=== PATIENT | female | born 1990 | race Caucasian/White ===

== ENCOUNTER 2018-09-08 06:40 | Inpatient (IN) | payer OTHER, SELFPAY ==
[~2018-09-08] VITALS: Ht 149.9 cm; Wt 85.3 kg
[2018-09-08] MEDS ORDERED: ONDANSETRON PF 4 MG/2 ML VIAL. IV PRN ×2 (07:00→07:15)
[2018-09-08] MEDS ORDERED: IV RINGERS,LACTATED 1000ML 1,000 ML IV PRN (07:00)
[2018-09-08] MEDS ORDERED: LIDOCAINE 1% PF 30 ML VIAL. INJ PRN (07:15)
[2018-09-08] MEDS ORDERED: 0.9 % SODIUM CHLORIDE 10 ML DISP.SYRIN. IV PRN ×2 (07:15→08:00)
[2018-09-08] MEDS ORDERED: ACETAMINOPHEN 325 MG TABLET. PO PRN ×2 (07:15→08:00)
[2018-09-08] MEDS ORDERED: NALBUPHINE 10 MG/ML AMPUL. IV PRN (07:15)
[2018-09-08] MEDS ORDERED: OXYTOCIN 30 UNIT/500 ML PREMIX 500 ML IV PRN ×2 (07:15→08:00)
[2018-09-08] MEDS ORDERED: TERBUTALINE 1 MG/ML VIAL. SQ PRN (07:15)
[2018-09-08] MEDS ORDERED: MAG HYDROX/ALUMINUM HYD/SIMETH 30 ML ORAL.SUSP PO PRN ×2 (07:15→08:00)
[2018-09-08] MEDS ORDERED: fentaNYL PF VIAL 100 MCG/2 ML VIAL IV PRN (07:15)
[2018-09-08 07:21] VITALS: BP 138/89
[2018-09-08 07:22] LABS: BILIRUBIN,URINE NEGATIVE (NEG); CLARITY,URINE CLEAR; COLOR,URINE YELLOW; NITRITE,URINE NEGATIVE (NEG); PROTEIN,URINE NEGATIVE (NEG-TRACE)
[2018-09-08] MEDS ORDERED: OXYTOCIN PREMIX 30 UNIT/500 ML BAG. IV ONE (07:25)
[2018-09-08 07:28] LABS: AMPHETAMINE/METHAMPHETAMINE NEG (NEG); BARBITURATES NEG (NEG); BENZODIAZEPINES NEG (NEG); CANNABINOIDS NEG (NEG); COCAINE NEG (NEG); METHADONE NEG (NEG); OPIATES NEG (NEG); PHENCYCLIDINE NEG (NEG)
[2018-09-08] MEDS ORDERED: PENICILLIN G K 5,000,000 UNIT in IV DEXTROSE 5% 100ML 100 ML IV ONE (07:30)
[2018-09-08 07:51] LABS: BACTERIA,URINE 0 /HPF (0-FEW); RBC,URINE 0 /HPF (0-2); SQUAMOUS EPITHELIAL CELL,UR FEW /LPF; WBC,URINE 0 /HPF (0-4)
--- NOTE | 2018-09-08 07:55 | PDOC1 ---
OB - History Hx of Present Care: Good Care Ultrasounds: Normal mid trimester US Obstetrical Complications: None Medical Complications: None Past Family/Social History * Past Medical, Surgical, Family and Obstetric Histories reviewed from chart. Blood Type: Unknown Rubella: Unknown RPR/VDRL: Unknown GBS Status: Unknown HBsAG: Unknown OB - Chief Complaint & HPI Date of Admission: Date of Admission: Sep 08, 2018 at 06:40 Chief Complaint/History : 4 Para: 3 EGA: 39 Reason for admission: active labor Admission Nurse Assessment Rev: Yes OB - Admission Exam Physical Exam Vitals: VS - Last 72 Hours, by Label Date Time Temp Pulse Resp B/P (MAP) Pulse Ox O2 Delivery O2 Flow Rate FiO2 09/08/18 07:21 98.0 72 20 138/89 (105) 97 Room Air 98.0 HEENT: Normal Heart: Regular Rate Lungs: Clear Abdomen: Gravid, Non tender, Soft Extremities: Edema Reflexes: Normal Cervical Dilatation: 6cm Effacement: 75% Station: -2 Membranes: Ruptured Amniotic Fluid: Clear Accelerations: Accelerations Present Decelerations: No decelerations Contractions on Admission: < 5 Minutes Apart Intensity: Firm Text A: 39 wks IUP SROM Active labor P: Admit labor management. EVER MADRID Jr, MD Sep 08, 2018 07:55
--- NOTE | 2018-09-08 07:57 | PDOC ---
VAGINAL DELIVERY DATE DATE: 09/08/18 TIME: 07:55 : 4 Para: 4 EGA: 39 VAGINAL DELIVERY: VTX VACCUM ASSISTED: No PLACENTA: Spontaneous 8/8 SEX: Male WEIGHT Weight [ 5 lbs. 14 oz] Nuchal Cord: Times 1 (body cord as well) Amniotic Fluid: Clear PAIN: Natural EPISIOTOMY: No EXTENSION: No EBL 300 ml COMPLICATIONS none CONDITION pt. stable Signs of Intrauterine Infectio: None Shoulder Dystocia: No EVER MADRID Jr, MD Sep 08, 2018 07:56
[2018-09-08] MEDS ORDERED: HYDROCORTISONE 1% TOPICAL OINTMENT 30GM TUBE. TP PRN (08:00)
[2018-09-08] MEDS ORDERED: BENZOCAINE 20% TOPICAL AEROSOL SPRAY 57GM CAN. TP PRN (08:00)
[2018-09-08] MEDS ORDERED: IBUPROFEN 400 MG TABLET. PO PRN (08:00)
[2018-09-08] MEDS ORDERED: MAGNESIUM HYDROXIDE 2,400 MG/30 ML ORAL.SUSP. PO PRN (08:00)
[2018-09-08] MEDS ORDERED: diphenhydrAMINE HCL 25 MG CAPSULE PO PRN (08:00)
[2018-09-08] MEDS ORDERED: SIMETHICONE 80 MG TAB.CHEW PO PRN (08:00)
[2018-09-08] MEDS ORDERED: PHENYLEPH/MINERAL OIL/PETROLAT RECTAL OINTMENT 57GM TUBE. RC PRN (08:00)
[2018-09-08] MEDS ORDERED: ZOLPIDEM 5 MG TABLET. PO PRN (08:00)
[2018-09-08] MEDS ORDERED: MMR per PROTOCOL. MC PRN (08:00)
[2018-09-08 08:06] LABS: BASO % 0 % (0-3); EOS % 0 % (0-3); HEMATOCRIT 29.2 % (36.0-47.0); HEMOGLOBIN 9.4 g/dL (12.0-15.5); LYMPH # 1.1 x10^3/uL (1.0-4.8); LYMPH % 12 % (24-48); MEAN CORPUSCULAR HEMOGLOBIN 26 pg (25-35); MEAN CORPUSCULAR HGB CONC 32 g/dL (31-37); MEAN CORPUSCULAR VOLUME 81 fL (79-100); MONO # 0.5 x10^3/uL (0.0-1.1); MONO % 5 % (0-9); NEUT # 7.6 x10^3uL (1.8-7.7); NEUT % 83 % (31-73); PLATELET COUNT 185 x10^3/uL (140-400); RED BLOOD COUNT 3.59 x10^6/uL (3.50-5.40); RED CELL DISTRIBUTION WIDTH 18.1 % (11.5-14.5); WHITE BLOOD COUNT 9.3 x10^3/uL (4.0-11.0)
[2018-09-08] MEDS: IBUPROFEN 400 MG TABLET. PO PRN ×2 (09:58→23:53)
[2018-09-08] MEDS: IV RINGERS,LACTATED 1000ML 1,000 ML IV SCH ×3 (09:59→23:09)
[2018-09-08 11:00] VITALS: BP 126/72
[2018-09-08] MEDS: PENICILLIN G K 2,500,000 UNIT in IV DEXTROSE 5% 50 ML IV SCH ×4 (11:30→23:30)
[2018-09-08 12:00] VITALS: BP 136/75
[2018-09-08] MEDS: DOCUSATE SODIUM 100 MG CAPSULE. PO PRN (15:09)
[2018-09-08] MEDS: oxyCODONE/APAP 5/325 1 TAB TABLET PO PRN ×3 (15:10→23:52)
[2018-09-08 15:45] VITALS: BP 128/72
[2018-09-08 23:30] VITALS: BP 128/82
[2018-09-09] MEDS: PENICILLIN G K 2,500,000 UNIT in IV DEXTROSE 5% 50 ML IV SCH ×5 (03:30→19:30)
[2018-09-09 05:30] VITALS: BP 112/73
[2018-09-09] MEDS: oxyCODONE/APAP 5/325 1 TAB TABLET PO PRN ×4 (05:54→19:01)
[2018-09-09] MEDS: IBUPROFEN 400 MG TABLET. PO PRN ×2 (05:54→17:06)
[2018-09-09 06:10] LABS: BASO % 0 % (0-3); EOS # 0.1 x10^3/uL (0.0-0.7); EOS % 1 % (0-3); HEMATOCRIT 23.7 % (36.0-47.0); HEMOGLOBIN 7.7 g/dL (12.0-15.5); LYMPH % 25 % (24-48); MEAN CORPUSCULAR HEMOGLOBIN 26 pg (25-35); MEAN CORPUSCULAR HGB CONC 32 g/dL (31-37); MEAN CORPUSCULAR VOLUME 82 fL (79-100); MONO # 0.5 x10^3/uL (0.0-1.1); MONO % 6 % (0-9); NEUT # 5.4 x10^3uL (1.8-7.7); NEUT % 68 % (31-73); PLATELET COUNT 173 x10^3/uL (140-400); RED BLOOD COUNT 2.91 x10^6/uL (3.50-5.40); RED CELL DISTRIBUTION WIDTH 18.4 % (11.5-14.5); WHITE BLOOD COUNT 7.9 x10^3/uL (4.0-11.0)
[2018-09-09] MEDS: IV RINGERS,LACTATED 1000ML 1,000 ML IV SCH ×2 (07:09→15:09)
[2018-09-09] MEDS: DOCUSATE SODIUM 100 MG CAPSULE. PO PRN (08:43)
[2018-09-09] MEDS: FERROUS SULFATE 325 MG TABLET. PO SCH ×2 (08:44→17:06)
[2018-09-09 11:26] VITALS: BP 116/71
--- NOTE | 2018-09-09 12:27 | PDOC ---
OB Progress Note Date of Service 09/09/18 Time of Evaluation 1225 Notes Pt. feeling well. No complaints. Lab Laboratory Tests Test 09/08/18 06:45 09/08/18 07:45 09/09/18 05:55 Urine Collection Type Unknown Urine Color Yellow Urine Clarity Clear Urine pH 7.0 Urine Specific [place] 1.015 Urine Protein Negative mg/dL (NEG-TRACE) Urine Glucose (UA) Negative mg/dL (NEG) Urine Ketones (Stick) Negative mg/dL (NEG) Urine Blood Negative (NEG) Urine Nitrite Negative (NEG) Urine Bilirubin Negative (NEG) Urine Urobilinogen Dipstick 1.0 mg/dL (0.2 mg/dL) Urine Leukocyte Esterase Negative (NEG) Urine RBC 0 /HPF (0-2) Urine WBC 0 /HPF (0-4) Urine Squamous Epithelial Cells Few /LPF Urine Bacteria 0 /HPF (0-FEW) Urine Opiates Screen Neg (NEG) Urine Methadone Screen Neg (NEG) Urine Barbiturates Neg (NEG) Urine Phencyclidine Screen Neg (NEG) Urine Amphetamine/Methamphetamine Neg (NEG) Urine Benzodiazepines Screen Neg (NEG) Urine Cocaine Screen Neg (NEG) Urine Cannabinoids Screen Neg (NEG) Urine Ethyl Alcohol Neg (NEG) White Blood Count 9.3 x10^3/uL (4.0-11.0) 7.9 x10^3/uL (4.0-11.0) Red Blood Count 3.59 x10^6/uL (3.50-5.40) 2.91 x10^6/uL (3.50-5.40) Hemoglobin 9.4 g/dL (12.0-15.5) 7.7 g/dL (12.0-15.5) Hematocrit 29.2 % (36.0-47.0) 23.7 % (36.0-47.0) Mean Corpuscular Volume 81 fL (79-100) 82 fL (79-100) Mean Corpuscular Hemoglobin 26 pg (25-35) 26 pg (25-35) Mean Corpuscular Hemoglobin Concent 32 g/dL (31-37) 32 g/dL (31-37) Red Cell Distribution Width 18.1 % (11.5-14.5) 18.4 % (11.5-14.5) Platelet Count 185 x10^3/uL (140-400) 173 x10^3/uL (140-400) Neutrophils (%) (Auto) 83 % (31-73) 68 % (31-73) Lymphocytes (%) (Auto) 12 % (24-48) 25 % (24-48) Monocytes (%) (Auto) 5 % (0-9) 6 % (0-9) Eosinophils (%) (Auto) 0 % (0-3) 1 % (0-3) Basophils (%) (Auto) 0 % (0-3) 0 % (0-3) Neutrophils # (Auto) 7.6 x10^3uL (1.8-7.7) 5.4 x10^3uL (1.8-7.7) Lymphocytes # (Auto) 1.1 x10^3/uL (1.0-4.8) 2.0 x10^3/uL (1.0-4.8) Monocytes # (Auto) 0.5 x10^3/uL (0.0-1.1) 0.5 x10^3/uL (0.0-1.1) Eosinophils # (Auto) 0.0 x10^3/uL (0.0-0.7) 0.1 x10^3/uL (0.0-0.7) Basophils # (Auto) 0.0 x10^3/uL (0.0-0.2) 0.0 x10^3/uL (0.0-0.2) Treponema pallidum Antibody Nonreactive (Nonreactive) Laboratory Tests Test 09/09/18 05:55 White Blood Count 7.9 x10^3/uL (4.0-11.0) Red Blood Count 2.91 x10^6/uL (3.50-5.40) Hemoglobin 7.7 g/dL (12.0-15.5) Hematocrit 23.7 % (36.0-47.0) Mean Corpuscular Volume 82 fL (79-100) Mean Corpuscular Hemoglobin 26 pg (25-35) Mean Corpuscular Hemoglobin Concent 32 g/dL (31-37) Red Cell Distribution Width 18.4 % (11.5-14.5) Platelet Count 173 x10^3/uL (140-400) Neutrophils (%) (Auto) 68 % (31-73) Lymphocytes (%) (Auto) 25 % (24-48) Monocytes (%) (Auto) 6 % (0-9) Eosinophils (%) (Auto) 1 % (0-3) Basophils (%) (Auto) 0 % (0-3) Neutrophils # (Auto) 5.4 x10^3uL (1.8-7.7) Lymphocytes # (Auto) 2.0 x10^3/uL (1.0-4.8) Monocytes # (Auto) 0.5 x10^3/uL (0.0-1.1) Eosinophils # (Auto) 0.1 x10^3/uL (0.0-0.7) Basophils # (Auto) 0.0 x10^3/uL (0.0-0.2) Medications Current Medications Ringer's Solution 1,000 ml @ 125 mls/hr Q8H PRN IV hydration; Start 09/08/18 at 07:00; Status Cancel Ondansetron HCl (Zofran) 4 mg PRN Q6HRS PRN IV NAUSEA; Start 09/08/18 at 07:00; Status Cancel Sodium Chloride (Normal Saline Flush) 3 ml QSHIFT PRN IV AFTER MEDS AND BLOOD DRAWS; Start 09/08/18 at 07:15 Ringer's Solution 1,000 ml @ 125 mls/hr Q8H IV Last administered on 09/08/18at 09:59; Start 09/08/18 at 07:09 Nalbuphine HCl (Nubain) 10 mg PRN Q1HR PRN IV Severe labor pain; Start 09/08/18 at 07:15 Fentanyl Citrate (Fentanyl 2ml Vial) 100 mcg PRN Q30MIN PRN IV Severe pain; Start 09/08/18 at 07:15 Acetaminophen (Tylenol) 650 mg PRN Q6HRS PRN PO MILD PAIN / TEMP; Start 09/08/18 at 07:15 Ondansetron HCl (Zofran) 4 mg PRN Q4HRS PRN IV NAUSEA/VOMITING; Start 09/08/18 at 07:15 Al Hydroxide/Mg Hydroxide (Mylanta Plus Xs) 30 ml PRN Q4HRS PRN PO HEARTBURN / GAS; Start 09/08/18 at 07:15 Terbutaline Sulfate (Brethine) 0.25 mg 1X PRN PRN SQ SEE COMMENTS; Start 09/08/18 at 07:15; Stop 09/09/18 at 07:14; Status DC Lidocaine HCl (Xylocaine 1% Pf 30ml Vial) 30 ml 1X PRN PRN INJ SEE COMMENTS; Start 09/08/18 at 07:15; Stop 09/10/18 at 07:14 Oxytocin/Sodium Chloride 500 ml @ 0 mls/hr CONT PRN PRN IV Post delivery bleeding; Start 09/08/18 at 07:15 Ibuprofen (Motrin) 800 mg PRN Q6HRS PRN PO PAIN MILD/INFLAMMATION Last administered on 09/09/18at 05:54; Start 09/08/18 at 07:15 Penicillin G Potassium [id number] unit/Dextrose 100 ml @ 100 mls/hr 1X ONCE IV ; Start 09/08/18 at 07:30; Stop 09/08/18 at 08:29; Status DC Penicillin G Potassium [id number] unit/Dextrose 50 ml @ 100 mls/hr Q4H IV ; Start 09/08/18 at 11:30 Sodium Chloride (Normal Saline Flush) 10 ml QSHIFT PRN IV AFTER MEDS AND BLOOD DRAWS; Start 09/08/18 at 08:00 Oxytocin/Sodium Chloride 500 ml @ 62.5 mls/hr CONT PRN IV SEE I/O RECORD; Start 09/08/18 at 08:00; Stop 09/08/18 at 15:59; Status DC Acetaminophen (Tylenol) 650 mg PRN Q6HRS PRN PO MILD PAIN / TEMP; Start 09/08/18 at 08:00; Status Cancel Ibuprofen (Motrin) 800 mg PRN Q8HRS PRN PO INFLAMMATION/PAIN PREVENTION; Start 09/08/18 at 08:00; Status Cancel Docusate Sodium (Colace) 100 mg PRN BID PRN PO CONSTIPATION Last administered on 09/09/18at 08:43; Start 09/08/18 at 08:00 Magnesium Hydroxide (Milk Of Magnesia) 2,400 mg PRN DAILY PRN PO CONSTIPATION; Start 09/08/18 at 08:00 Al Hydroxide/Mg Hydroxide (Mylanta Plus Xs) 30 ml PRN Q4HRS PRN PO HEARTBURN / GAS; Start 09/08/18 at 08:00; Status Cancel Simethicone (Gas-X) 80 mg PRN AFTMEALHC PRN PO GAS / BLOATING; Start 09/08/18 at 08:00 Diphenhydramine HCl (Benadryl) 25 mg PRN Q6HRS PRN PO ITCHING; Start 09/08/18 at 08:00 Benzocaine (Americaine) 1 spray PRN QID PRN TP TOPICAL PAIN Last administered on 09/08/18at 09:58; Start 09/08/18 at 08:00 Phenyleph/Shark Oil/Min Oil/Petrol (Preparation H) 1 leo PRN QID PRN RC RECTAL PAIN; Start 09/08/18 at 08:00 Hydrocortisone (Cortaid) 1 leo PRN QID PRN TP PERINEAL PAIN; Start 09/08/18 at 08:00 Ferrous Sulfate (Feosol) 325 mg BIDWMEALS PO Last administered on 09/09/18at 08:44; Start 09/09/18 at 08:00 Zolpidem Tartrate (Ambien) 5 mg PRN QHS PRN PO INSOMNIA, MAY REPEAT X1; Start 09/08/18 at 08:00 Info (Do NOT chart on this placeholder) 1 ea 1X PRN PRN MC SEE COMMENTS; Start 09/08/18 at 08:00 Info (Do NOT chart on this placeholder) 1 ea 1X PRN PRN MC SEE COMMENTS; Start 09/08/18 at 08:00 Oxycodone/ Acetaminophen (Percocet 5/325) 2 tab PRN Q4HRS PRN PO MODERATE PAIN, SEVERE PAIN Last administered on 09/09/18at 08:48; Start 09/08/18 at 08:00 Exam Abd: soft, non tender, fundus firm Assessment A: PPD#1 s/p Plan of Care: Continue current Tx, Mgmt EVER MADRID Jr, MD Sep 09, 2018 12:27
[2018-09-09 16:10] VITALS: BP 126/82
[2018-09-09 21:00] VITALS: BP 131/84
[2018-09-10 05:00] VITALS: BP 124/79
[2018-09-10] MEDS: IBUPROFEN 400 MG TABLET. PO PRN ×3 (05:20→17:08)
[2018-09-10] MEDS: oxyCODONE/APAP 5/325 1 TAB TABLET PO PRN (05:21)
[2018-09-10] MEDS: DOCUSATE SODIUM 100 MG CAPSULE. PO PRN (07:32)
[2018-09-10] MEDS: FERROUS SULFATE 325 MG TABLET. PO SCH ×2 (07:32→17:08)
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
[2018-09-10 10:43] VITALS: BP 128/84
--- NOTE | 2018-09-10 13:46 | NUR ---
SS following up. Jett from the PAT team met with infants mother for assessment and evaluation. Jett reported that pt is stable and cleared. He reported NO suicidal ideations at this time. He reported that mother had stopped taking her anti-depressants at the beginning of her and has been off for the duration of her and now that has been born wants to get back on her medications. Jett reported that Dr. Cowan is providing infants mother with a one month script for anti-depressant. Infants mother provided with a referral to [facility] for continued services and medication management in the community. Infant RN notified.
[2018-09-10 16:23] VITALS: BP 122/78
--- NOTE | 2018-09-10 17:38 | PDOC3 ---
OB DISCHARGE SUMMARY DATE OF ADMISSION: 09/08/18 DATE OF DISCHARGE: 09/10/18 REASON FOR ADMISSION: Onset of labor INTRAPARTUM PROCEDURES: Spontanous Vag Deliv DISCHARGE DIAGNOSIS: Term Delivered DISCHARGE INFORMATION: Activity (ad jacqueline), Diet (regular), Instructions (pelvic rest x 6 wks) HOSPITAL COURSE Term gestation delivered vaginally without complications. EVER MADRID Jr, MD Sep 10, 2018 17:38
[2018-09-10] MEDS ORDERED: IBUP-1027 PO (17:40)
[2018-09-10] MEDS ORDERED: SERT50TA PO (17:40)
--- NOTE | 2018-09-10 17:41 | DISCH ---
DISCHARGE INSTRUCTIONS Condition on Discharge Condition on Discharge: Stable Activity After Discharge Activity Instructions for Disc: Activity as tolerated Lifting Instructions after Dis: No heavy lifting Driving Instructions after Dis: Do not drive today Diet after Discharge Diet after Discharge: Regular Contacting the [facility] after DC Call your doctor for: Concerns you may have Follow-Up Follow up with: Dr. Cowan in 6 wks EVER COWAN Jr, MD Sep 10, 2018 17:41
--- NOTE | 2018-09-10 17:57 | NUR ---
home instructions gone over with pt and signed. zoloft and ibuprofen prescriptions given to pt. states has no questions on home care
--- NOTE | 2018-09-10 19:48 | NUR ---
left floor at 1945 for discharge with baby, car seat checked by Raegan Chen, patient walked out. Left in private vehicle.
== END 2018-09-10 19:45 | disposition home or self-care (01) | DRG 807 ==
LOC: OBSVTOIN 06:40 → 3 SO LND 06:40 → 3 NORTH 10:36
PROVIDERS: ADMIT Obstetrics & Gynecology; ATTEND Obstetrics & Gynecology
PROC: 10E0XZZ Delivery of Products of Conception, External Approach (ICD-10-PCS; principal; 2018-09-08)
DX: O69.81X0 Labor and delivery complicated by cord around neck, without compression, not applicable or unspecified (principal); Z37.0 Single live birth; Z3A.39 39 weeks gestation of pregnancy
CPT/HCPCS: 36415; 80307; 81001; 85025; 86592; 86850; 86900; 86901; J2590; J7120

== ENCOUNTER 2020-10-05 06:44 | Emergency (ER) | payer OTHER ==
[~2020-10-05] VITALS: Ht 149.9 cm; Wt 68.1 kg
[~2020-10-05 06:44] MED LIST: IBUP-1027 PO; SERT50TA PO
[2020-10-05 07:25] LABS: BARBITURATES NEG (NEG); BENZODIAZEPINES NEG (NEG); CANNABINOIDS NEG (NEG); COCAINE NEG (NEG); METHADONE NEG (NEG); OPIATES NEG (NEG); PHENCYCLIDINE NEG (NEG)
[2020-10-05 07:27] LABS: BILIRUBIN,URINE SMALL (NEG); CLARITY,URINE CLEAR; COLOR,URINE YELLOW; NITRITE,URINE NEGATIVE (NEG); PROTEIN,URINE NEGATIVE (NEG-TRACE)
[2020-10-05 07:28] LABS: AMPHETAMINE/METHAMPHETAMINE POS (NEG)
[2020-10-05 07:38] LABS: BACTERIA,URINE MANY /HPF (0-FEW)
[2020-10-05 07:39] LABS: RBC,URINE 0 /HPF (0-2)
[2020-10-05 07:56] LABS: BASO % 0 % (0-3); EOS % 0 % (0-3); HEMATOCRIT 33.8 % (36.0-47.0); HEMOGLOBIN 10.9 g/dL (12.0-15.5); LYMPH # 1.5 x10^3/uL (1.0-4.8); LYMPH % 29 % (24-48); MEAN CORPUSCULAR HEMOGLOBIN 27 pg (25-35); MEAN CORPUSCULAR HGB CONC 32 g/dL (31-37); MEAN CORPUSCULAR VOLUME 84 fL (79-100); MONO # 0.6 x10^3/uL (0.0-1.1); MONO % 12 % (0-9); NEUT % 59 % (31-73); PLATELET COUNT 232 x10^3/uL (140-400); RED CELL DISTRIBUTION WIDTH 15.5 % (11.5-14.5); WHITE BLOOD COUNT 5.1 x10^3/uL (4.0-11.0)
[2020-10-05 08:12] LABS: CALCIUM 8.9 mg/dL (8.5-10.1); CREATININE 0.7 mg/dL (0.6-1.0); GFR 99.6; POTASSIUM 3.7 mmol/L (3.5-5.1)
[2020-10-05] MEDS ORDERED: IV NORMAL SALINE 1000ML BAG 1,000 ML IV ONE (08:15)
[2020-10-05 08:18] LABS: ALBUMIN 3.9 g/dL (3.4-5.0); ALBUMIN/GLOBULIN RATIO 1.1 (1.0-1.7); TOTAL BILIRUBIN 0.7 mg/dL (0.2-1.0); TOTAL PROTEIN 7.4 g/dL (6.4-8.2)
[2020-10-05] MEDS ORDERED: cefTRIAXone IV Push 1 GM VIAL. IVP ONE (09:00)
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
[2020-10-05 10:16] VITALS: BP 121/72
== END 2020-10-05 10:25 | disposition home or self-care (01) ==
LOC: ER 06:44
DX: F19.10 Other psychoactive substance abuse, uncomplicated (principal); F17.200 Nicotine dependence, unspecified, uncomplicated
CPT/HCPCS: 36415; 80053; 80307; 81001; 81025; 85025; 96361; 96374; 99285; G0480; J0696; J7030